=== PATIENT | male | born 1970 | race Caucasian/White ===

== ENCOUNTER 2020-06-10 22:18 | Emergency (ER) | payer OTHER, SELFPAY ==
[~2020-06-10] VITALS: Ht 165.1 cm; Wt 90.7 kg
[2020-06-10 22:22] VITALS: BP 135/79
--- NOTE | 2020-06-10 22:30 | NUR ---
PT TO A/W IN TENT FOR MEDICAL SCREENING. PT WEARING MASK.
--- NOTE | 2020-06-10 23:20 | NUR ---
COVID SWAB COLLECTED.
--- NOTE | 2020-06-10 23:22 | NUR ---
Patient discharged with v/s stable. Written and verbal after care instructions given and explained. Patient verbalized understanding. Ambulatory with steady gait. All questions addressed prior to discharge. Advised to follow up with PMD.
--- NOTE | 2020-06-12 19:14 | NUR ---
RECEIVED POSITIVE COVID RESULTS. LAB WILL BRING HARD COPY
--- NOTE | 2020-06-13 16:19 | NUR ---
POSITIVE RESULT OF COVID RECEIVED FROM LAB. INFETION CONTROL DEPT WILL CONTACT PATIENT.
== END 2020-06-10 23:22 | disposition home or self-care (01) ==
LOC: MED 22:18 → EEVIPCON 22:18 → MED 23:22
DX: U07.1 COVID-19 (principal); B34.9 Viral infection, unspecified
CPT/HCPCS: 99283; U0003